=== PATIENT | female | born 1945 | race Caucasian/White ===

== ENCOUNTER → 2016-08-19 | Outpatient (CLI) | payer MEDICARE ==
[2016-08-19 14:05] LABS: Blood Urea Nitrogen 5 mg/dL (7-17); Non-African American GFR(MDRD) >60 (>60 ml/min/1.73 sqM)
--- NOTE | 2016-08-19 15:22 | CT ---
CT urogram with and without contrast HISTORY: Gross hematuria Correlation to CT abdomen pelvis 25 March 2016 Helical acquisition obtained through the kidneys pre- and postadministration 100 cc Omni 300 IV and f ollowing contrast administration from the lung bases through the abdomen and pelvis. Three-dimensional reconstructions performed on an alternate workstation Lung bases are clear, no pleural or pericardial effusion. Epicardial pacing leads noted incidentally. Small hiatal hernia present. No pneumoperitoneum, retroperitoneal adenopathy, or ascites. Patient is post cholecystectomy. Aorta shows normal caliber, there is atheromatous change. Adrenal glands unrem arkable. Possible duodenal diverticulum at the third portion. Diverticular change noted in the sigmoi d colon. Uterus and adnexal structures are absent. There are no renal calculi present, no evident hydronephrosis on the left. Prompt symmetric nephrogra ms are present. Excretion of contrast noted bilaterally. Mild prominence of the right renal collectin g system, extrarenal pelvis, relative narrowing noted at the site of the patient's ovarian vein at it s confluence with the inferior vena cava. The ureters show a normal course and caliber, the right ure ter shows a normal caliber distal to the ovarian vein confluence. No evident ureteral calculus or ure teral mass. The urinary bladder shows questionable minimal luminal irregularity, axial image 65 of ac quisition #6, coronal image 92 of acquisition #5, difficult to exclude a small polypoid filling defec t. This is an asymmetric appearance. IMPRESSION: Mild prominence of the right renal collecting system is noted, the proximal ureter course s posterior to the gonadal vein with a changing caliber at this level. Consider cystoscopy at the lev el of the trigone on the right, difficult to exclude a small polypoid mass.
== END | disposition home or self-care (01) ==
LOC: RADCTMAIN 13:14
PROVIDERS: ATTEND Urology
DX: R31.0 Gross hematuria (principal)
CPT/HCPCS: 82565; 84520; 74178; 36415; 74400; Q9967

== ENCOUNTER → 2016-08-25 | Outpatient (CLI) | payer MEDICARE ==
[2016-08-25 08:58] LABS: Basophils # (A) 0.1 k/uL (0-0.2); Basophils % (A) 2 %; CHCM 32.3; Eosinophils # (A) 0.1 k/uL (0-0.7); Eosinophils % (A) 2 %; HCT 48.1 % (34.0-46.0); HDW 2.58; HGB 15.1 gm/dL (11.4-16.0); Luc % (Auto) 3; Lymphocytes # (A) 2.5 k/uL (1.0-4.8); Lymphocytes % (A) 32 %; MCH 29.2 pg (25.0-35.0); MCHC 31.3 g/dL (31.0-37.0); MCV 93.4 fL (80.0-100.0); Mean Platelet Volume 7.5; Monocytes # (A) 0.6 k/uL (0-1.0); Monocytes % (A) 8 %; Neutrophils # (A) 4.2 k/uL (1.3-7.7); Neutrophils % (A) 54 %; RBC 5.15 m/uL (3.80-5.40); RDW 14.4 % (11.5-15.5); WBC 7.7 k/uL (3.8-10.6); WBC (Perox) 7.44
[2016-08-25 09:06] LABS: Anion Gap 9 mmol/L; Appearance,Urine Clear (Clear); Bilirubin,Urine Negative (Negative); Blood Urea Nitrogen 11 mg/dL (7-17); Calcium 9.6 mg/dL (8.4-10.2); Carbon Dioxide 29 mmol/L (22-30); Chloride 106 mmol/L (98-107); Glucose 91 mg/dL (74-99); Glucose,Urine (UA) Negative (Negative); Ketones,Urine Negative (Negative); Leukocyte Esterase,Urine Small (Negative); Nitrite,Urine Negative (Negative); Non-African American GFR(MDRD) >60 (>60 ml/min/1.73 sqM); PH, Urine 5.5 (5.0-8.0); Particle Count 774; Potassium 4.9 mmol/L (3.5-5.1); Protein,Urine Negative (Negative); RBC,Urine 2 /hpf (0-5); Sodium 144 mmol/L (137-145); Specific Gravity,Urine 1.004 (1.001-1.035); Squamous Epithelial Cell,Urine <1 /hpf (0-4); UA Billing (MACRO vs. MICRO) MICRO; Urobilinogen,Urine <2.0 mg/dL (<2.0); WBC,Urine 2 /hpf (0-5)
== END | disposition home or self-care (01) ==
LOC: LABPAT 08:23
PROVIDERS: ATTEND Urology
DX: Z01.812 Encounter for preprocedural laboratory examination (principal); R35.0 Frequency of micturition; E03.9 Hypothyroidism, unspecified; C67.2 Malignant neoplasm of lateral wall of bladder
CPT/HCPCS: 36415; 80048; 81001; 85025; 87086

== ENCOUNTER → 2016-08-31 | Outpatient (CLI) | payer MEDICARE | END | disposition home or self-care (01) | LOC: LABPAT 11:30 | PROVIDERS: ATTEND Anesthesiology | DX: Z01.812 Encounter for preprocedural laboratory examination (principal); Z01.810 Encounter for preprocedural cardiovascular examination | CPT/HCPCS: 93005 ==

== ENCOUNTER 2016-09-01 06:53 | Day surgery (SDC) | payer MEDICARE ==
[2016-08-26 15:49] VITALS: BMI 30.7
[~2016-09-01 06:53] MED LIST: DEXAMETHASONE SOD PHOSPHATE 10 MG/ML 1 ML VIAL IV ONE; HYDROmorphone 1 MG/ML 1 ML SYRINGE IVP PRN; LACTATED RINGERS 1,000 ML IV SCH; LIDOCAINE 1% 20 ML VIAL (10MG/ML) FOR IV START INTRADERMA PRN; ONDANSETRON 4 MG/2 ML VIAL IVP ONE; ceFAZolin 2 GM in SODIUM CHLORIDE 0.9% 100 ML IVPB ONE
[2016-09-01] MEDS ORDERED: SUCCINYLCHOLINE CHLORIDE 100 MG/5 ML SYR IV ONE (08:17)
[2016-09-01] MEDS ORDERED: ePHEDrine 50 MG/ML 1 ML AMP ONE (08:17)
[2016-09-01] MEDS ORDERED: MIDAZOLAM 2 MG/2 ML VIAL ONE (08:17)
[2016-09-01] MEDS ORDERED: LIDOCAINE 1% INJ 10MG/ML (20 ML MDV) ONE (08:17)
[2016-09-01] MEDS ORDERED: fentaNYL (PF) 50 MCG/ML 2 ML AMP ONE (08:17)
[2016-09-01] MEDS ORDERED: PROPOFOL 10 MG/ML 20 ML VIAL IV ONE (08:17)
--- NOTE | 2016-09-01 08:58 | P.OP ---
Date of Procedure: 09/01/16 Preoperative Diagnosis: Superficial bladder cancer, small Postoperative Diagnosis: Same, right lateral wall Implants: TURBT, small right lateral wall Anesthesia: MARELY Surgeon: Ronnie Cardenas Estimated Blood Loss (ml): 0 Pathology: other (Bladder tumor) Condition: stable Disposition: PACU Indications for Procedure: The patient is a 71-year-old female with gross hematuria. A small bladder tumor on the right lateral wall was identified she comes for resection Description of Procedure: The patient was brought to the operating suite and given a general endotracheal anesthesia. She's placed lithotomy position with sterile prep and drape. The 25-Azeri sheath to the Farias resectoscope is introduced in the bladder. The bladder is inspected and there is a small papillary tumor on the right lateral wall. With the Farias resectoscope this tumors resected. The base and surrounding edges were fulgurated thoroughly. At the end of the procedure a Ramirez cath was introduced the patient awake and returned recovery room good condition. This tumors sent to pathology. The patient will be discharged home upon recovery and follow in the office next week for catheter removal and biopsy report.
[2016-09-01 09:08] VITALS: TEMP 97.7
[2016-09-01 09:36] VITALS: RESP 18
[2016-09-01 10:23] VITALS: BP 118/60; PULSE 60
== END 2016-09-01 10:46 | disposition home or self-care (01) ==
LOC: OR 06:53
PROVIDERS: ATTEND Urology
DX: C67.2 Malignant neoplasm of lateral wall of bladder (principal); I10 Essential (primary) hypertension; E78.5 Hyperlipidemia, unspecified; E03.9 Hypothyroidism, unspecified; Z95.1 Presence of aortocoronary bypass graft; Z79.899 Other long term (current) drug therapy
CPT/HCPCS: 88307; 52234; J2250; J1100; J0690; J2405; J2001; J3010; J0330; J2704

== ENCOUNTER → 2020-06-13 | Outpatient (CLI) | payer MEDICARE ==
--- NOTE | 2020-06-13 13:03 | FL ---
EXAMINATION TYPE: FL barium swallow DATE OF EXAM: 06/13/2020 COMPARISON: None HISTORY: Dysphagia, lump in throat TECHNIQUE: Double air-contrast technique is utilized to evaluate the esophagus. FINDINGS: No intraluminal or extramural defects are evident. Secondary and tertiary contractions were evident during the exam. No suspicious focal abnormality to account for the patient's symptoms is ev ident. The horizontal drinking position there is incomplete stripping the esophageal bolus. Fluoroscopy time: 1 minute 11 seconds. Images: 19 IMPRESSION: 1. Moderate presbyesophagus.
--- NOTE | 2020-06-13 13:17 | US ---
EXAMINATION TYPE: US thyroid st tissue head/neck DATE OF EXAM: 06/13/2020 COMPARISON: NONE CLINICAL HISTORY: E04.1 THYROID NODULE. Thyroidectomy 15 years ago patient states small part of right lobe left. GLAND SIZE: Right Lobe: Tissue visualized 2.9 x 1.8 x 1.7 cm Overall Parenchyma: homogenous Left Lobe: Surgically absent Isthmus Thickness: .16 cm NODULES RIGHT: # of nodules measured on right: 0 LEFT: # of nodules measured on left: 0 ISTHMUS: # of nodules measured in the isthmus: 0 Bilateral neck scanned, no evidence of lymphadenopathy. IMPRESSION: 2017 ACR TI-RADS LEVEL: 1 *Highest TI-RADS level nodule reported
== END | disposition home or self-care (01) ==
LOC: RADUSWWP 10:38
PROVIDERS: ATTEND Otolaryngology
DX: K22.8 Other specified diseases of esophagus (principal); E04.1 Nontoxic single thyroid nodule
CPT/HCPCS: 74220; 76536